=== PATIENT | female | born 1990 | race Caucasian/White ===

== ENCOUNTER 2018-04-06 12:17 | Emergency (ER) | payer OTHER ==
[2018-04-06] MEDS ORDERED: NAPROXEN 250 MG TABLET PO STA (12:42)
[2018-04-06] MEDS ORDERED: ACETAMINOPHEN 500 MG TABLET PO STA (12:42)
[2018-04-06] MEDS ORDERED: DEXAMETHASONE 10 MG/ML VIAL PO STA (13:20)
--- NOTE | 2018-04-06 13:21 | ED Physician Documentation ---
PD HPI HEENT - Stated complaint Stated Complaint: THROAT PX/FEVER - Chief complaint Chief Complaint: Fever - History obtained from History obtained from: Patient - History of Present Illness Timing - duration: Days (2) Timing - details: Gradual onset - Additional information Additional information: 27-year-old female presents the emergency department with 2 days of sore throat. The patient has had fever this morning which improved with antipyretics at home. The patient reports pain with swallowing. The patient reports postnasal drip and sinus pain. No reports of cough, shortness of breath or ear pain. Symptoms are described as mild. No other associated symptoms. No known sick contacts. Review of Systems Constitutional: reports: Fever, Chills, Myalgias Eyes: denies: Discharge Ears: denies: Ear pain Nose: reports: Rhinorrhea / runny nose, Congestion Throat: reports: Sore throat Cardiac: denies: Chest pain / pressure Respiratory: denies: Cough : denies: Dysuria Skin: denies: Rash PD PAST MEDICAL HISTORY - Past Medical History Past Medical History: No - Past Surgical History Past Surgical History: Yes HEENT: Tonsil/Adenoidectomy - Present Medications Home Medications: Ambulatory Orders Medication Instructions Recorded Confirmed Bcp 1 04/06/18 Fluoxetine HCl [Prozac] 20 mg PO DAILY 04/06/18 04/06/18 RX: Acyclovir 400 mg PO DAILY 04/06/18 04/06/18 - Allergies Allergies/Adverse Reactions: Allergies Allergy/AdvReac Type Severity Reaction Status Date / Time No Known Drug Allergies Allergy Verified 04/06/18 12:24 - Social History Does the pt smoke?: No Smoking Status: Never smoker Does the pt drink ETOH?: Yes Does the pt have substance abuse?: No - Immunizations Immunizations are current?: Yes PD ED PE NORMAL - General General: Alert and oriented X 3, No acute distress - HEENT HEENT: Atraumatic, PERRL, EOMI, Ears normal, Moist mucous membranes, Other (The tonsils are surgically absent, the uvula is midline and nonedematous, there is no clinical evidence of a intraoral abscess, the tongue is within normal limits and soft. The floor the mouth is moist and soft. The patient does have some slight erythematous changes of the posterior pharynx. No lesions.) - Neck Neck: No adenopathy - Cardiac Cardiac: RRR, Strong equal pulses - Respiratory Respiratory: No respiratory distress - Derm Derm: Normal color - Extremities Extremities: No deformity - Neuro Neuro: Alert and oriented X 3, Normal speech - Psych Psych: Normal affect Results - Vitals Vitals: Vital Signs - 24 hr 04/06/18 04/06/18 12:21 13:37 Temperature 37.1 C Heart Rate 108 H 78 Respiratory 18 16 Rate Blood Pressure 134/87 H 120/74 O2 Saturation 95 Oxygen O2 Source Room air - Labs Labs: Laboratory Tests 04/06/18 12:30 Group A Strep Rapid Negative PD MEDICAL DECISION MAKING - ED course ED course: The patient's symptoms seem to be other viral etiology, the patient has no clinical evidence of acute otitis media, retropharyngeal abscess, or deep space infection, pneumonia or an etiology that would necessitate antibiotic therapy. The patient appears appropriate for discharge and ongoing outpatient management. I discussed warning signs and recommended returning for any worsening or concerns. Departure - Departure Disposition: 01 Home, Self Care Clinical Impression: Viral pharyngitis Condition: Good Instructions: ED Pharyngitis Viral Follow-Up: Provider,Other [Primary Care Provider] - Within 1 week Comments: Please return to the ER for worsening symptoms or any concerns Discharge Date/Time: 04/06/18 13:37
[2018-04-06 13:39] VITALS: BP 120/74
== END 2018-04-06 13:37 | disposition home or self-care (01) ==
LOC: ED 12:17
DX: J02.8 Acute pharyngitis due to other specified organisms (principal)
CPT/HCPCS: 87070; 87077; 87430; 99283; A9270